=== PATIENT | male | born 1995 | race Caucasian/White ===

== ENCOUNTER 2019-08-04 18:55 | Emergency (ER) | payer SELFPAY ==
[2019-08-04 19:08] VITALS: BP 177/108; PULSE 120; RESP 20; TEMP 36.5; O2SAT 97
--- NOTE | 2019-08-04 19:29 | ED.GENADULT ---
HPI - General Adult General Chief complaint: Unspecified Stated complaint: amb Source: patient Mode of arrival: ambulatory Limitations: no limitations History of Present Illness HPI narrative: A 23-year-old male presents with a sensation that his throat is closing occurred earlier this evening I called EMS currently the patient is comfortable speaking in full sentences no audible wheezing patient had a roll up cigarette and after that felt like is some throat was swelling a and closing. There is no fever chills no shortness of breath no nausea vomiting no abdominal pain no rash no fever chills. Onset (ago): hour(s) Radiation: neck Pain Consistency: intermittent Relieving factors: cold therapy Exacerbating factors: none Associated symptoms: denies other symptoms Treatments prior to arrival: none Related Data Allergies Allergy/AdvReac Type Severity Reaction Status Date / Time No Known Allergies Allergy Verified 08/04/19 19:14 Review of Systems Review of Systems: All systems reviewed & are unremarkable except as noted in HPI and below PMFSH Past Medical History Medical History Patient denies medical problems Social History Social History Gender identity (if verbalized by the patient): Male Exam Const: General: no acute distress and alert Orientation/consciousness: patient oriented x3 HENMT: Head: normal to inspection Eyes: Conjunctivae: conjunctivae normal Pupils: Equal, round and reactive pupils present Chest: Chest palpation & inspection: normal inspection of the chest Resp: Effort & Inspection: normal respiratory effort Auscultation: clear to auscultation bilaterally Cardio: Rhythm: regular rhythm GI: GI Palp: Yes Soft to palpation : Testes: Testes normal Urinary Catheter: Urinary Catheter: patent and draining Neuro: General: patient oriented x3 Extrem: General: normal to inspection Psych: Mental Status: mental status grossly normal Course Vital Signs Vital signs: Vital Signs Temperature 36.5 C 08/04/19 19:08 Pulse Rate 120 H 08/04/19 19:08 Respiratory Rate 08/04/19 19:08 Blood Pressure 177/108 H 08/04/19 19:08 Pulse Oximetry 97 08/04/19 19:08 Temperature 36.5 C 08/04/19 19:08 Pulse Rate 120 H 08/04/19 19:08 Respiratory Rate 08/04/19 19:08 Blood Pressure 177/108 H 08/04/19 19:08 Pulse Oximetry 97 08/04/19 19:08 Medical Decision Making Vital Signs Vital Signs: Vital Signs Temperature 36.5 C 08/04/19 19:08 Pulse Rate 120 H 08/04/19 19:08 Respiratory Rate 20 08/04/19 19:08 Blood Pressure 177/108 H 08/04/19 19:08 Pulse Oximetry 97 08/04/19 19:08 Temperature 36.5 C 08/04/19 19:08 Pulse Rate 120 H 08/04/19 19:08 Respiratory Rate 08/04/19 19:08 Blood Pressure 177/108 H 08/04/19 19:08 Pulse Oximetry 97 08/04/19 19:08 Critical Care Time Critical Care Time Critical Care Time: No Discharge Plan Discharge Clinical Impression: Allergic reaction Qualifiers: Encounter type: initial encounter Qualified Code(s): T78.40XA - Allergy, unspecified, initial encounter Patient Disposition: Home, Self-Care Condition: Stable Instructions: Antibiotic Form Additional Instructions: Follow-up with primary care physician if symptoms persist or worsen. Prescriptions: New prednisone 10 mg tablet 10 mg PO DAILY Qty: 5 RF: 0 Follow-up/Referrals: UNKNOWN,DOCTOR [Primary Care Provider] - Time of Disposition: 19:33
--- NOTE | 2019-08-04 19:30 | PC.NURSE ---
Entered room to administer IM injection of Depo-medrol as ordered. Pt requesting a cab voucher to take him to [place]. Informed pt that this facility does not provide cab vouchers but that he is welcome to call the nearest cab company in [place] to pick him up and that he would have to pay for the cab. Pt then stated well I don't have a ride and no one to pick me up so I'll just have to stay here at the hospital for a few days . Informed pt that once he is discharged he will have to exit the building due to the current visitor policy related to the Coronavirus. Pt states I don't have the coronavirus , what if I just go out side and get hit by a car so then the ambulance can pick me back up and take me to [facility] . Asked pt if he was threatening to harm himself by purposely walking in front of a car. Pt states I just mean that way the ambulance has to take me where I want to go . Pt accusing this RN of yelling at him. Asked pt if he wanted the IM injection as ordered. Pt states first you were yelling at me and now you want to shoot me up . Attempted to explain to pt that the physician ordered the injection and that I am trying to do my job. Pt responded fuck that, I don't want that shit . This RN exited the room, made Dr Cheema aware of pt's refusal.
[2019-08-04 19:40] VITALS: RESP 20
--- NOTE | 2019-08-04 19:40 | PC.NURSE ---
After pt received dc instructions, pt noted to be malingering in lobby near phone charging station. ER registration assisted pt with contacting a cab from [place] to pick him up. After ending phone call, pt noted to be sitting in a wheelchair in vestibule between ER waiting room doors, doors to main hospital, and doors to exit. Pt's cup laying on floor, dc [employer] also scattered on phone. This RN went to speak with pt. Informed pt that he may not remain in the vestibule due to current visitor/pt policy in place. Informed pt that he needs to collect his belongings from the floor and exit the building to wait for his cab. Pt becoming argumentative with this RN, informing me that he had recorded me earlier in his ER stay and posted the recording to social media. Explained to pt that he cannot record staff without their knowledge. Pt continuing to be argumentative, again asked pt to exit the building and that if he did not comply with request PD would be contacted. Pt exited and sat down on bench.
== END 2019-08-04 19:40 | disposition home or self-care (01) ==
PROVIDERS: Emergency Provider Emergency Medicine
DX: T78.40XA Allergy, unspecified, initial encounter (principal)
CPT/HCPCS: 99283